=== PATIENT | male | born 1985 | race Caucasian/White ===

== ENCOUNTER 2023-11-01 23:34 | Emergency (ER) | payer BC ==
[~2023-11-01] VITALS: Ht 175.2 cm; Wt 104.3 kg
[2023-11-02] MEDS ORDERED: OCUFLOX 5 ML5 ML OP (00:20)
[2023-11-02] MEDS ORDERED: CIPROFLOXACIN H10 ML OPH (11:25)
== END 2023-11-02 00:45 | disposition home or self-care (01) ==
LOC: ED 23:34
DX: T15.92XA Foreign body on external eye, part unspecified, left eye, initial encounter (principal); X58.XXXA Exposure to other specified factors, initial encounter; Y93.89 Activity, other specified; Y92.89 Other specified places as the place of occurrence of the external cause; Y99.8 Other external cause status